=== PATIENT | female | born 2000 | race Hispanic/Latino ===

== ENCOUNTER 2020-01-09 23:26 | Emergency (ER) | payer MEDICAID ==
[~2020-01-09 23:26] MED LIST: ONDA4TAB4 PO; PREN-155 PO
[2020-01-10 00:44] LABS: APPEARANCE,URINE Clear (CLEAR); BILIRUBIN,URINE Negative (NEGATIVE); COLOR,URINE Yellow (YELLOW); GLUCOSE, URINE (UA) Negative (NEGATIVE); KETONES,URINE Negative (NEGATIVE); LEUKOCYTE ESTERASE ,URINE Small (NEGATIVE); NITRATE,URINE Negative (NEGATIVE); OCCULT BLOOD,URINE Negative (NEGATIVE); PH,URINE 5.5 (5.0-8.0); PROTEIN,URINE Negative (NEGATIVE)
[2020-01-10 00:52] LABS: BACTERIA,URINE Few /HPF (None Seen); RBC,URINE None Seen /HPF (0-1); SQUAMOUS EPITHELIAL CELL,UR Few /HPF (0-2)
== END 2020-01-10 01:18 | disposition home or self-care (01) ==
LOC: EDH 23:26
DX: O26.891 Other specified pregnancy related conditions, first trimester (principal); R10.2 Pelvic and perineal pain; O21.9 Vomiting of pregnancy, unspecified; O99.511 Diseases of the respiratory system complicating pregnancy, first trimester; J45.909 Unspecified asthma, uncomplicated; K21.9 Gastro-esophageal reflux disease without esophagitis; Z88.8 Allergy status to other drugs, medicaments and biological substances; Z79.899 Other long term (current) drug therapy; Z90.49 Acquired absence of other specified parts of digestive tract; Z3A.10 10 weeks gestation of pregnancy
CPT/HCPCS: 81001

== ENCOUNTER 2020-02-26 21:29 | Emergency (ER) | payer MEDICAID ==
[2020-02-26 21:59] LABS: APPEARANCE,URINE Clear (CLEAR); BILIRUBIN,URINE Negative (NEGATIVE); COLOR,URINE Yellow (YELLOW); GLUCOSE, URINE (UA) Negative (NEGATIVE); KETONES,URINE Negative (NEGATIVE); LEUKOCYTE ESTERASE ,URINE Negative (NEGATIVE); NITRATE,URINE Negative (NEGATIVE); OCCULT BLOOD,URINE Trace (NEGATIVE); PROTEIN,URINE Negative (NEGATIVE)
[2020-02-26 22:09] LABS: WBC,URINE 0-1 /HPF (0-1)
[2020-02-26 22:10] LABS: BACTERIA,URINE Rare /HPF (None Seen); SQUAMOUS EPITHELIAL CELL,UR Few /HPF (0-2)
[2020-02-26] MEDS ORDERED: ACETAMINOPHEN 325 MG TAB ONE (23:11)
== END 2020-02-27 00:06 | disposition home or self-care (01) ==
LOC: EDH 21:29
DX: O26.892 Other specified pregnancy related conditions, second trimester (principal); R10.2 Pelvic and perineal pain; Z3A.19 19 weeks gestation of pregnancy; J45.909 Unspecified asthma, uncomplicated; K21.9 Gastro-esophageal reflux disease without esophagitis; Z90.49 Acquired absence of other specified parts of digestive tract; Z88.8 Allergy status to other drugs, medicaments and biological substances
CPT/HCPCS: 81001; 87210; 87486; 87797

== ENCOUNTER 2020-05-05 15:57 | Observation (INO) | payer MEDICAID | END 2020-05-05 17:17 | disposition home or self-care (01) | LOC: EDH 15:57 → LDH 16:11 | PROVIDERS: ADMIT Obstetrics & Gynecology; ATTEND Obstetrics & Gynecology | DX: O42.913 Preterm premature rupture of membranes, unspecified as to length of time between rupture and onset of labor, third trimester (principal); O99.513 Diseases of the respiratory system complicating pregnancy, third trimester; O99.613 Diseases of the digestive system complicating pregnancy, third trimester; J45.909 Unspecified asthma, uncomplicated; K21.9 Gastro-esophageal reflux disease without esophagitis; Z90.49 Acquired absence of other specified parts of digestive tract; Z88.8 Allergy status to other drugs, medicaments and biological substances; Z3A.29 29 weeks gestation of pregnancy | CPT/HCPCS: 81001; 87088; 99284; G0378 ==

== ENCOUNTER 2020-06-01 23:39 | Inpatient (IN) | payer MEDICAID ==
[~2020-06-01] VITALS: Ht 160 cm; Wt 112.0 kg
[2020-06-02 00:31] LABS: APPEARANCE,URINE Clear (CLEAR); BILIRUBIN,URINE Negative (NEGATIVE); COLOR,URINE Yellow (YELLOW); GLUCOSE, URINE (UA) Negative (NEGATIVE); KETONES,URINE Negative (NEGATIVE); LEUKOCYTE ESTERASE ,URINE Moderate (NEGATIVE); NITRATE,URINE Negative (NEGATIVE); OCCULT BLOOD,URINE Negative (NEGATIVE); PH,URINE 6.5 (5.0-8.0); PROTEIN,URINE Negative (NEGATIVE)
[2020-06-02 00:38] LABS: BACTERIA,URINE Moderate /HPF (None Seen); RBC,URINE 0-1 /HPF (0-1); YEAST,URINE BUDDING Few /HPF (None Seen)
[2020-06-02] MEDS ORDERED: MAGNESIUM SULFATE 1,000 ML IV PRN (00:51)
[2020-06-02] MEDS ORDERED: CALCIUM GLUCONATE 1 GM/10 ML VIAL IV PRN (01:00)
[2020-06-02] MEDS ORDERED: MAGNESIUM 4GM PREMIX 100ML 100 ML IV SCH (01:00)
[2020-06-02] MEDS ORDERED: AMPICILLIN 2GM+NS 100ML 100 ML IV SCH (01:00)
[2020-06-02] MEDS ORDERED: AMPICILLIN 2GM+NS 100ML 100 ML IV ONE (01:07)
[2020-06-02] MEDS ORDERED: MAGNESIUM 4GM PREMIX 100ML 100 ML IV ONE (01:07)
[2020-06-02] MEDS ORDERED: DEXAMETHASONE SOD PHOSPHATE 4 MG/ML 1ML VIAL ONE (01:08)
[2020-06-02] MEDS ORDERED: MAGNESIUM SULFATE 1,000 ML IV ONE (01:08)
[2020-06-02 01:12] LABS: AMPHET/METH SCREEN,URINE NEGATIVE (NEGATIVE); BARBITURATE SCREEN, URINE NEGATIVE (NEGATIVE); BENZODIAZEPINES SCREEN,URINE NEGATIVE (NEGATIVE); CANNABINOID SCREEN,URINE NEGATIVE (NEGATIVE); COCAINE SCREEN,URINE NEGATIVE (NEGATIVE); OPIATE SCREEN,URINE NEGATIVE (NEGATIVE); PHENCYCLIDINE SCREEN,URINE NEGATIVE (NEGATIVE)
[2020-06-02 01:22] LABS: HEMATOCRIT 33.9 % (36-48); MEAN CORPUSCULAR HEMOGLOBIN 28.6 pg (27.0-33.0); MEAN CORPUSCULAR VOLUME 86.7 fL (80-100); RED BLOOD CELL COUNT(AUTO) 3.91 MIL/uL (4.00-5.50); WHITE BLOOD COUNT (AUTO) 12.5 K/uL (4.8-10.8)
[2020-06-02] MEDS: AMPICILLIN 1GM+NS 50ML 50 ML IV SCH ×5 (05:03→21:36)
[2020-06-02] MEDS: LACTATED RINGERS 1000ML 1,000 ML IV PRN ×2 (05:04→19:35)
[2020-06-02] MEDS: DEXAMETHASONE SOD PHOSPHATE 4 MG/ML 1ML VIAL IM SCH ×3 (07:32→19:31)
[2020-06-02 10:17] LABS: RAPID PLASMA REAGIN NONREACTIVE (NONREACTIVE)
[2020-06-03] MEDS: AMPICILLIN 1GM+NS 50ML 50 ML IV SCH (02:32)
[2020-06-03 21:07] LABS: HEPATITIS Bs ANTIGEN SCREEN P Negative (Negative)
== END 2020-06-03 05:55 | disposition home or self-care (01) | DRG 566 ==
LOC: EDH 23:39 → LDH 23:40 → OBSVTOIN 23:40 → LDH 06-02 01:09
PROVIDERS: ADMIT Obstetrics & Gynecology; ATTEND Obstetrics & Gynecology
DX: O26.853 Spotting complicating pregnancy, third trimester (principal); O99.343 Other mental disorders complicating pregnancy, third trimester; F32.9 Major depressive disorder, single episode, unspecified; R10.9 Unspecified abdominal pain; W18.30XA Fall on same level, unspecified, initial encounter; Y93.89 Activity, other specified; Y92.89 Other specified places as the place of occurrence of the external cause; Y99.8 Other external cause status; Z90.49 Acquired absence of other specified parts of digestive tract; Z3A.32 32 weeks gestation of pregnancy; Z88.8 Allergy status to other drugs, medicaments and biological substances
CPT/HCPCS: 36415; 80305; 81001; 85027; 86592; 86701; 86850; 86900; 86901; 87088; 87340; 87390; A4314; G0378; J0290; J1100; J3475; J7120

== ENCOUNTER 2020-06-17 09:40 | Observation (INO) | payer MEDICAID ==
[2020-06-17 10:42] LABS: APPEARANCE,URINE Clear (CLEAR); BILIRUBIN,URINE Negative (NEGATIVE); COLOR,URINE Yellow (YELLOW); GLUCOSE, URINE (UA) Negative (NEGATIVE); KETONES,URINE Trace mg/dL (NEGATIVE); LEUKOCYTE ESTERASE ,URINE Moderate (NEGATIVE); NITRATE,URINE Negative (NEGATIVE); OCCULT BLOOD,URINE Negative (NEGATIVE); PROTEIN,URINE Trace mg/dL (NEGATIVE)
[2020-06-17 10:50] LABS: BACTERIA,URINE Moderate /HPF (None Seen); MUCUS,URINE Moderate LPF (None Seen); RBC,URINE None Seen /HPF (0-1); TRANSITIONAL EPI CELLS,URINE Moderate /HPF (None Seen)
== END 2020-06-17 11:05 | disposition home or self-care (01) ==
LOC: EDH 09:40 → LDH 09:57
PROVIDERS: ADMIT Obstetrics & Gynecology; ATTEND Obstetrics & Gynecology
DX: O26.893 Other specified pregnancy related conditions, third trimester (principal); O99.513 Diseases of the respiratory system complicating pregnancy, third trimester; O99.343 Other mental disorders complicating pregnancy, third trimester; O99.613 Diseases of the digestive system complicating pregnancy, third trimester; R10.9 Unspecified abdominal pain; J45.909 Unspecified asthma, uncomplicated; F41.8 Other specified anxiety disorders; K21.9 Gastro-esophageal reflux disease without esophagitis; Z3A.34 34 weeks gestation of pregnancy
CPT/HCPCS: 81001; 87088; 99284; G0378

== ENCOUNTER 2020-07-12 04:16 | Inpatient (IN) | payer MEDICAID ==
[~2020-07-12] VITALS: Ht 160 cm; Wt 114.8 kg
[2020-07-12 04:56] LABS: APPEARANCE,URINE Clear (CLEAR); BILIRUBIN,URINE Negative (NEGATIVE); COLOR,URINE Yellow (YELLOW); GLUCOSE, URINE (UA) Negative (NEGATIVE); KETONES,URINE Negative (NEGATIVE); LEUKOCYTE ESTERASE ,URINE Negative (NEGATIVE); NITRATE,URINE Negative (NEGATIVE); OCCULT BLOOD,URINE Negative (NEGATIVE); PROTEIN,URINE Negative (NEGATIVE)
[2020-07-12] MEDS ORDERED: LACTATED RINGERS 1000ML 1,000 ML IV PRN (05:12)
[2020-07-12] MEDS ORDERED: ROPIVACAINE 0.2% 100ML VIAL 100 ML EP PRN (05:15)
[2020-07-12] MEDS ORDERED: EPHEDRINE SULFATE 50 MG/ML AMPULE IVP PRN (05:15)
[2020-07-12] MEDS ORDERED: OXYTOCIN 10 USP UNITS/ML 20 UNIT in LACTATED RINGERS 1000ML 1,000 ML IV SCH (05:15)
[2020-07-12] MEDS ORDERED: ONDANSETRON HCL 4 MG/2 ML VIAL IVP PRN (05:15)
[2020-07-12] MEDS ORDERED: MEPERIDINE-PF 50 MG/ML SYG IVP PRN (05:15)
[2020-07-12] MEDS ORDERED: LACTATED RINGERS 500 ML 500 ML IV PRN (05:15)
[2020-07-12] MEDS ORDERED: NALOXONE HCL 0.4 MG/1 ML ML IV PRN (05:15)
[2020-07-12 05:27] LABS: HEMATOCRIT 33.9 % (36-48); MEAN CORPUSCULAR HEMOGLOBIN 28.1 pg (27.0-33.0); MEAN CORPUSCULAR HGB CONC 32.7 g/dL (32.0-36.0); MEAN CORPUSCULAR VOLUME 85.8 fL (80-100); RED BLOOD CELL COUNT(AUTO) 3.95 MIL/uL (4.00-5.50); RED CELL DISTRIBUTION WIDTH 13.2 % (11.0-15.5)
[2020-07-12] MEDS ORDERED: OXYTOCIN-LR 20 UNITS/1000 ML 1,000 ML IV ONE ×2 (05:29→09:18)
[2020-07-12] MEDS ORDERED: MAG HYDROX/AL HYDROX/SIMETH ES 30 ML SUSP UDCUP PO SCH (06:15)
[2020-07-12] MEDS ORDERED: MAG HYDROX/AL HYDROX/SIMETH ES 30 ML SUSP UDCUP ONE (06:48)
[2020-07-12] MEDS ORDERED: LIDOCAINE HCL 1% 20 ML VIAL ONE (07:34)
[2020-07-12] MEDS ORDERED: DIPH,PERTUSS(ACELL),TET VAC/PF 0.5 ML VIAL IM PRN (09:15)
[2020-07-12] MEDS ORDERED: LANOLIN 30GM OINTMENT TP PRN (09:15)
[2020-07-12] MEDS ORDERED: ACETAMINOPHEN 325 MG TAB PO PRN (09:15)
[2020-07-12] MEDS ORDERED: ACETAMINOPHEN-CODEINE 300/30MG TAB PO PRN (09:15)
[2020-07-12] MEDS ORDERED: WITCH HAZEL 1 PAD TP PRN (09:15)
[2020-07-12] MEDS ORDERED: MEASLES/MUMPS/RUBELLA VACCINE, LIVE 0.5 ML/VIAL SQ PRN (09:15)
[2020-07-12 10:56] VITALS: BP 127/71
[2020-07-12] MEDS: BENZOCAINE/LANOLIN/ALOE VERA 60 ML AEROSOL TP PRN (11:10)
[2020-07-12] MEDS: IBUPROFEN 600 MG TABLET PO PRN ×2 (11:11→21:16)
--- NOTE | 2020-07-12 13:40 | NUR ---
LUÍS referral for history of depression SW visited pt. who is smiling as she is sitting up in bed holding . Pt. reports that this is her second /delivery and plans are to name Gabby Olmos. Pt's older child is 3y, reportedly current with immunizations and being cared for by maternal grandmother. Pt. reports that she is employed with [employer](out on maternity leave through September)and resides with father of children who is employed with [employer]. Pt. denied any history of PPD with of 1y. Pt. reports that she has a history of depression, was diagnosed in 2011, was under treatment with a therapist until the of 1y. According to pt, she has done well throughout the last three years and denied history suicide attempts. Pt. denies any current thoughts of harm to self or others, denies depressed mood or anxiety and denies any history of domestic violence. SW provided pt. with information on counseling options in the community, however, pt. declined stating that if needed, she would return to her prior therapist stating she is most comfortable with him. Pt. reported a strong support system among family. Pt. denied any use of illicit substances, etoh or tobacco; there are no smokers in the home. Benefits include Medicaid and WIC; Senior Underwriting Assistant is [facility]. All utilities are reportedly connected in the home and family has own transportation. Pt's boyfriend will provide transportation home upon discharge. Pt. verbalized no SS needs or concerns. Addendum: 07/12/20 at 1510 by KASSANDRA JONES SS Amended: Links added.
[2020-07-12 16:11] VITALS: BP 106/53
[2020-07-12 19:44] VITALS: BP 120/73
[2020-07-12] MEDS: DOCUSATE SODIUM 100 MG CAP PO SCH (21:16)
[2020-07-12 23:55] VITALS: BP 90/41
[2020-07-13 03:10] VITALS: BP 99/42
[2020-07-13 06:52] LABS: HEMATOCRIT 28.9 % (36-48); MEAN CORPUSCULAR HEMOGLOBIN 27.7 pg (27.0-33.0); MEAN CORPUSCULAR HGB CONC 31.8 g/dL (32.0-36.0); RED BLOOD CELL COUNT(AUTO) 3.32 MIL/uL (4.00-5.50); RED CELL DISTRIBUTION WIDTH 13.2 % (11.0-15.5); WHITE BLOOD COUNT (AUTO) 10.9 K/uL (4.8-10.8)
[2020-07-13 07:19] LABS: HEPATITIS Bs ANTIGEN SCREEN P Negative (Negative)
[2020-07-13 07:46] VITALS: BP 105/54
[2020-07-13] MEDS: DOCUSATE SODIUM 100 MG CAP PO SCH (09:03)
[2020-07-13] MEDS: IBUPROFEN 600 MG TABLET PO PRN (09:04)
--- NOTE | 2020-07-13 11:00 | NUR ---
DR. RAYO CALLED AND UPDATE ON PATIENT GIVEN. WAS MADE AWARE OF BABY DISCHARGE AND ORDER OBTAINED TO DISCHARGE PATIENT. VITAL SIGNS HAVE BEEN STABLE AND PATIENT DENIES PAIN AT THIS TIME. TOLERATING DIET AND ACTIVITY WELL WITHOUT ANY PROBLEMS.
[2020-07-13 11:27] VITALS: BP 113/56
[2020-07-13] MEDS: BENZOCAINE/LANOLIN/ALOE VERA 60 ML AEROSOL TP PRN (11:52)
--- NOTE | 2020-07-13 12:10 | NUR ---
PATIENT WAS TAKEN VIA W/C TO [facility]YING BABY IN ARMS. PATIENT IS STABLE.
== END 2020-07-13 12:10 | disposition home or self-care (01) | DRG 560 ==
LOC: EDH 04:16 → LDH 04:17 → OBSVTOIN 04:17 → WSH 10:55
PROVIDERS: ADMIT Obstetrics & Gynecology; ATTEND Obstetrics & Gynecology
PROC: 10E0XZZ Delivery of Products of Conception, External Approach (ICD-10-PCS; principal; 2020-07-12)
PROC: 10907ZC Drainage of Amniotic Fluid, Therapeutic from Products of Conception, Via Natural or Artificial Opening (ICD-10-PCS; 2020-07-12)
PROC: 0UQGXZZ Repair Vagina, External Approach (ICD-10-PCS; 2020-07-12)
PROC: 3E0234Z Introduction of Serum, Toxoid and Vaccine into Muscle, Percutaneous Approach (ICD-10-PCS; 2020-07-12)
PROC: 3E0134Z Introduction of Serum, Toxoid and Vaccine into Subcutaneous Tissue, Percutaneous Approach (ICD-10-PCS; 2020-07-12)
DX: O99.62 Diseases of the digestive system complicating childbirth (principal); O99.52 Diseases of the respiratory system complicating childbirth; O71.4 Obstetric high vaginal laceration alone; Z3A.37 37 weeks gestation of pregnancy; Z37.0 Single live birth; Z23 Encounter for immunization; O99.344 Other mental disorders complicating childbirth; J45.909 Unspecified asthma, uncomplicated; K21.9 Gastro-esophageal reflux disease without esophagitis; O99.214 Obesity complicating childbirth; E66.9 Obesity, unspecified
CPT/HCPCS: 36415; 81003; 85027; 86592; 86850; 86900; 86901; 87340; 90715; A4351; G0378; J2175; J2405; J2590

== ENCOUNTER 2023-09-11 09:02 | Emergency (ER) | payer MEDICAID ==
[~2023-09-11] VITALS: Ht 160 cm; Wt 122.5 kg
[2023-09-11 09:03] VITALS: BP 125/66; PULSE 93; RESP 16
[2023-09-11 09:07] VITALS: O2SAT 100
[2023-09-11 09:50] LABS: SARS-CoV-2, RNA, NAAT NEGATIVE SARS CoV-2 (NEGATIVE)
[2023-09-11 09:53] LABS: RAPID GROUP A STREP negative (NEGATIVE)
[2023-09-11 10:03] LABS: INFLUENZA TYPE A Negative For Type A (NEGATIVE); INFLUENZA TYPE B Negative For Type B (NEGATIVE)
[2023-09-11] MEDS ORDERED: PREN1CAP37 PO (10:38)
[2023-09-11] MEDS ORDERED: DOXY1TAB3 PO (10:38)
== END 2023-09-11 11:13 | disposition home or self-care (01) ==
LOC: EDH 09:02
DX: O99.511 Diseases of the respiratory system complicating pregnancy, first trimester (principal); J20.8 Acute bronchitis due to other specified organisms; Z20.822 Contact with and (suspected) exposure to COVID-19; Z3A.08 8 weeks gestation of pregnancy; Z90.49 Acquired absence of other specified parts of digestive tract; Z79.899 Other long term (current) drug therapy; Z98.890 Other specified postprocedural states; Z88.8 Allergy status to other drugs, medicaments and biological substances
CPT/HCPCS: 99283; 87635; 87880; 87804 ×2; C9803

== ENCOUNTER 2023-12-31 00:46 | Emergency (ER) | payer MEDICAID ==
[~2023-12-31] VITALS: Ht 160 cm; Wt 121.1 kg
[~2023-12-31 00:46] MED LIST changes: +DOXY1TAB3 PO; -ONDA4TAB4 PO; -PREN-155 PO; +PREN1CAP37 PO
[2023-12-31 01:40] LABS: RAPID GROUP A STREP negative (NEGATIVE)
[2023-12-31 01:44] LABS: SARS-CoV-2, RNA, NAAT NEGATIVE SARS CoV-2 (NEGATIVE)
[2023-12-31 01:49] LABS: INFLUENZA TYPE A Negative For Type A (NEGATIVE); INFLUENZA TYPE B Negative For Type B (NEGATIVE)
[2023-12-31 02:14] VITALS: PULSE 108; RESP 14
[2023-12-31] MEDS: IPRATROPIUM/ALBUTEROL SULFATE 3 ML SOLUTION IH ONE (02:14)
[2023-12-31] MEDS ORDERED: ALBUHFA IH (03:19)
[2023-12-31] MEDS ORDERED: LORA10TA7 PO (03:22)
[2023-12-31 03:50] VITALS: BP 121/72; PULSE 88; RESP 16; O2SAT 100
== END 2023-12-31 03:54 | disposition home or self-care (01) ==
LOC: EDH 00:46
DX: O99.512 Diseases of the respiratory system complicating pregnancy, second trimester (principal); J45.909 Unspecified asthma, uncomplicated; F41.9 Anxiety disorder, unspecified; F32.A Depression, unspecified; Z3A.23 23 weeks gestation of pregnancy; Z90.49 Acquired absence of other specified parts of digestive tract; Z20.822 Contact with and (suspected) exposure to COVID-19
CPT/HCPCS: 87635; 87804; 87880; 94640

== ENCOUNTER 2024-03-12 20:20 | Emergency (ER) | payer MEDICAID ==
[~2024-03-12] VITALS: Ht 160 cm; Wt 90.7 kg
[~2024-03-12 20:20] MED LIST changes: +ALBUHFA IH; +LORA10TA7 PO
[2024-03-12 20:59] VITALS: BP 152/75; PULSE 88; RESP 18
[2024-03-13] MEDS ORDERED: OCEAN NASAL (00:20)
[2024-03-13] MEDS ORDERED: AMOX500C2 PO (00:20)
== END 2024-03-13 00:32 | disposition home or self-care (01) ==
LOC: EDH 20:20
DX: O99.513 Diseases of the respiratory system complicating pregnancy, third trimester (principal); J45.909 Unspecified asthma, uncomplicated; F41.9 Anxiety disorder, unspecified; F32.A Depression, unspecified; Z79.899 Other long term (current) drug therapy; Z90.49 Acquired absence of other specified parts of digestive tract; Z3A.33 33 weeks gestation of pregnancy

== ENCOUNTER 2024-03-17 13:12 | Inpatient (IN) | payer MEDICAID ==
[~2024-03-17] VITALS: Ht 160 cm; Wt 117.9 kg
[~2024-03-17 13:12] MED LIST changes: +AMOX500C2 PO; +OCEAN NASAL
[2024-03-17] MEDS: LACTATED RINGERS 1000ML 1,000 ML IV SCH (14:05)
[2024-03-17 14:11] LABS: APPEARANCE,URINE CLEAR (CLEAR); BILIRUBIN,URINE NEGATIVE (NEGATIVE); COLOR,URINE YELLOW (YELLOW); GLUCOSE, URINE (UA) NEGATIVE (NEGATIVE); KETONES,URINE NEGATIVE (NEGATIVE); LEUKOCYTE ESTERASE ,URINE NEGATIVE Leu/uL (NEGATIVE); NITRATE,URINE NEGATIVE (NEGATIVE); OCCULT BLOOD,URINE NEGATIVE (NEGATIVE); PROTEIN,URINE 20 mg/dL (NEGATIVE); UROBILINOGEN,URINE 0.2 mg/dL (0.2-1.0)
[2024-03-17 14:12] LABS: ADD UA MICROSCOPIC YES
[2024-03-17] MEDS: CELESTONE SOLUSPAN 6 MG/ML 5ML VIAL IM SCH (14:17)
[2024-03-17 14:50] LABS: MUCUS,URINE RARE LPF (None Seen); RBC,URINE 0-1 /HPF (0-1); SQUAMOUS EPITHELIAL CELL,UR MOD /HPF (0-2)
[2024-03-18] MEDS: FAMOTIDINE 20MG VIAL IV ONE (09:58)
[2024-03-18] MEDS: CITRIC ACID/SODIUM CITRATE 30 ML UDCUP PO SCH (09:58)
[2024-03-18] MEDS ORDERED: LACTATED RINGERS 1000ML 1,000 ML IV PRN ×2 (10:30→16:00)
[2024-03-18 11:15] LABS: HEMATOCRIT 28.3 % (36-48); MEAN CORPUSCULAR HEMOGLOBIN 26.2 pg (27.0-33.0); MEAN CORPUSCULAR HGB CONC 32.2 g/dL (32.0-36.0); MEAN CORPUSCULAR VOLUME 81.6 fL (79-99); RED BLOOD CELL COUNT(AUTO) 3.47 MIL/uL (4.00-5.50); RED CELL DISTRIBUTION WIDTH 14.2 % (11.0-15.5); WHITE BLOOD COUNT (AUTO) 11.1 K/uL (4.8-10.8)
[2024-03-18 11:53] LABS: RAPID PLASMA REAGIN NONREACTIVE (NONREACTIVE)
[2024-03-18 12:11] LABS: HIV 1&2 ANTIBODY Non-Reactive (Negative); HIV-1 p24 Antigen Non-Reactive (Negative)
[2024-03-18] MEDS: LACTATED RINGERS 1000ML 1,000 ML IV SCH (16:00)
[2024-03-18] MEDS: OXYTOCIN 10 USP UNITS/ML ONE (16:36)
[2024-03-18] MEDS: MORPHINE PF 100MG/10ML AMP IV ONE (16:36)
[2024-03-18] MEDS: DEXAMETHASONE SOD PHOSPHATE 10MG/ML 1ML VIAL ONE (16:36)
[2024-03-18] MEDS: ONDANSETRON 4MG INJ ONE ×3 (16:37→19:07)
[2024-03-18] MEDS: FENTANYL CITRATE PF 50 MCG/1 ML 2ML VIAL ONE (16:37)
[2024-03-18] MEDS: CEFAZOLIN SODIUM 3 GM VIAL IVPB ONE (16:45)
[2024-03-18] MEDS: CEFAZOLIN SODIUM 1 GM VIAL IVPB PRN (17:47)
[2024-03-18] MEDS: CALDOLOR 800MG+NS 250ML 250 ML IV PRN (17:48)
[2024-03-18] MEDS: OXYTOCIN-LR 30 UNITS/500ML 500 ML IV SCH (17:49)
[2024-03-18] MEDS ORDERED: PROMETHAZINE HCL 25 MG/ML 1ML AMPULE IM PRN (18:00)
[2024-03-18] MEDS ORDERED: 0.9%NACL 10ML VIAL IVP PRN (18:00)
[2024-03-18] MEDS ORDERED: OXYTOCIN-LR 30 UNITS/500ML 500 ML IV PRN (18:00)
[2024-03-18] MEDS ORDERED: MEPERIDINE-PF 75 MG/ML SYG IM PRN (18:00)
[2024-03-18 20:00] VITALS: BP 111/68; PULSE 77; RESP 18
[2024-03-18] MEDS: METOCLOPRAMIDE 10 MG/2 ML VIAL IVP PRN (22:07)
[2024-03-18 23:33] VITALS: BP 105/65; PULSE 72; RESP 20
[2024-03-19] MEDS ORDERED: ONDANSETRON 4MG INJ IVP PRN (01:00)
[2024-03-19] MEDS: DEXTROSE 5 %-0.45 % NACL 1,000 ML IV PRN (01:12)
[2024-03-19] MEDS: CALDOLOR 800MG+NS 250ML 250 ML IV SCH (01:33)
[2024-03-19] MEDS ORDERED: ACETAMINOPHEN 500 MG TABLET PO PRN (03:30)
[2024-03-19] MEDS ORDERED: LANOLIN 30GM OINTMENT TP PRN (03:30)
[2024-03-19 03:33] VITALS: BP 109/62; PULSE 75; RESP 18
[2024-03-19] MEDS: ACETAMINOPHEN WITH CODEINE 1 TAB TAB PO PRN (06:16)
[2024-03-19 07:15] VITALS: BP 114/73; PULSE 75; RESP 18
[2024-03-19 08:40] LABS: HEMATOCRIT 29.7 % (36-48); MEAN CORPUSCULAR HEMOGLOBIN 25.5 pg (27.0-33.0); MEAN CORPUSCULAR VOLUME 82.3 fL (79-99); PLATELET COUNT (AUTO) 303 K/uL (130-400); RED BLOOD CELL COUNT(AUTO) 3.61 MIL/uL (4.00-5.50); WHITE BLOOD COUNT (AUTO) 16.3 K/uL (4.8-10.8)
[2024-03-19] MEDS ORDERED: BISACODYL 10 MG SUPP.RECT RC PRN (09:00)
[2024-03-19] MEDS: DOCUSATE SODIUM 100 MG CAP PO SCH (10:05)
[2024-03-19 12:00] VITALS: BP 103/59; PULSE 76; RESP 18
[2024-03-19] MEDS: DIPH,PERTUSS(ACELL),TET VAC/PF 0.5 ML VIAL IM SCH (12:47)
[2024-03-19] MEDS: HYDROCODONE/ACETAMINOPHEN 5/325 MG TAB PO PRN (14:08)
[2024-03-19] MEDS: DIPHENHYDRAMINE HCL 25 MG CAPSULE PO PRN (14:20)
[2024-03-19 16:00] VITALS: BP 102/51; PULSE 74; RESP 20
[2024-03-19] MEDS: IBUPROFEN 800 MG TAB PO SCH (18:16)
[2024-03-19 19:30] VITALS: BP 113/62; PULSE 89; RESP 20
[2024-03-19] MEDS: SIMETHICONE 80 MG TAB.CHEW PO PRN (20:26)
[2024-03-19 23:21] VITALS: BP 95/65; PULSE 85; RESP 20
[2024-03-20 03:57] VITALS: BP 101/61; PULSE 85; RESP 18
[2024-03-20 07:25] VITALS: BP 109/63; PULSE 81; RESP 20
[2024-03-20 11:25] VITALS: BP 109/75; PULSE 78; RESP 20
[2024-03-20 15:20] VITALS: BP 119/64; PULSE 88; RESP 20
[2024-03-20 19:37] VITALS: BP 111/68; PULSE 87; RESP 20
[2024-03-20 23:10] VITALS: BP 122/66; PULSE 84; RESP 18
[2024-03-21 03:04] VITALS: BP 104/59; PULSE 80; RESP 18
[2024-03-21 07:50] VITALS: BP 129/73; PULSE 94; RESP 20
[2024-03-21 11:50] VITALS: BP 111/60; PULSE 92; RESP 20
[2024-03-21] MEDS ORDERED: DOCU-116 PO (14:29)
[2024-03-21] MEDS ORDERED: IBUP-2077 PO (14:30)
[2024-03-21] MEDS ORDERED: ACET-2079 PO (14:30)
== END 2024-03-21 15:05 | disposition home or self-care (01) | DRG 540 ==
LOC: EDH 13:12 → LDH 13:20 → OBSVTOIN 13:20 → WSH 03-19 06:02
PROVIDERS: ADMIT Obstetrics & Gynecology; ATTEND Obstetrics & Gynecology
PROC: 10D00Z1 Extraction of Products of Conception, Low, Open Approach (ICD-10-PCS; principal; 2024-03-18 16:36)
DX: O41.03X0 Oligohydramnios, third trimester, not applicable or unspecified (principal); Z37.2 Twins, both liveborn; O30.043 Twin pregnancy, dichorionic/diamniotic, third trimester; O99.214 Obesity complicating childbirth; O32.1XX1 Maternal care for breech presentation, fetus 1; O32.1XX2 Maternal care for breech presentation, fetus 2; O76 Abnormality in fetal heart rate and rhythm complicating labor and delivery; O99.02 Anemia complicating childbirth; Z3A.34 34 weeks gestation of pregnancy
CPT/HCPCS: 36415; 59510; 81001; 85027; 86592; 86701; 86850; 86900; 86901; 87340; 87390; 90715; 96360; 96361; 96372; A4344; G0378; J0690; J0702; J1100; J1741; J2274; J2405; J2590; J2765; J3010; J3490; J7042; J7120; Q0163; A4248; A4649; A9272; C1765